=== PATIENT | male | born 1960 | race Caucasian/White ===

== ENCOUNTER 2018-05-30 19:33 | Emergency (ER) | payer OTHER ==
[~2018-05-30] VITALS: Ht 172.7 cm; Wt 89.5 kg
[~2018-05-30 19:33] MED LIST: PRLSR20 PO
[2018-05-30 19:43] VITALS: TEMP 36.7; Ht 172.7 cm; Wt 89.5 kg
[2018-05-30] MEDS ORDERED: LIDOCAINE 1% BUFFERED INJ 5 ML VIAL INFIL ONE (20:00)
[2018-05-30] MEDS ORDERED: CLR10 PO (20:14)
[2018-05-30] MEDS ORDERED: OMEP20TA PO (20:14)
--- NOTE | 2018-05-30 20:23 | EMERGENCY ROOM VISIT NOTE ---
History First contact with patient: 19:46 Chief Complaint: LACERATION/CUT (SUT/DERMABOND) Stated Complaint: RIGHT HAND INJURY Nursing Triage Summary: Pt reports he was hammering a stake with a sledge hammer, missed and his hand went on the stake. Laceration to crease of right hand, near thumb. Tetanus is not UTD History of Present Illness The patient is a 58 year old male who presents to the Emergency Room with complaints of a laceration to his right hand. The patient states that he was hammering a stake with a sledgehammer, missed and his hand went on for steak. He reports a laceration to the space between the thumb and index finger. He rates his discomfort a 2/10. He states that the blood soaked through a bandage. He is unsure when his last tetanus was, but believes it was when he was last here for a scalp laceration. He denies any numbness or weakness. Review of Systems A complete 6 point review of systems was reviewed with the patient with pertinent positives and negatives as per history of present illness. All else were negative. Past Medical/Surgical History Medical Problems: (1) GERD (gastroesophageal reflux disease) (2) Seasonal allergies Social History Housing Status: lives with family Current/Historical Medications Scheduled Omeprazole (Omeprazole), 20 MG PO DAILY Scheduled PRN Loratadine (Claritin), 10 MG PO DAILY PRN for Seasonal Allergies Physical Exam Vital Signs Date Time Temp Pulse Resp B/P (MAP) Pulse Ox O2 Delivery O2 Flow Rate FiO2 05/30/18 20:44 77 18 122/77 97 05/30/18 19:43 36.7 79 18 150/86 93 Room Air Physical Exam VITALS: Vitals are noted on the nurse's note and reviewed by myself. Vital signs stable. GENERAL: This is a 58-year-old male, in no acute distress, nondiaphoretic, well- developed well-nourished. SKIN: There is a 1 cm laceration to the right hand, located in the webspace between the thumb and index finger. There is no active bleeding. The laceration does not gape significantly. Capillary refill within 2 seconds. MUSCULOSKELETAL: Full range of motion of all fingers. NEURO: Patient was alert and oriented to person place and time. Distal sensation intact. Medical Decision & Procedures Procedure Verbal consent was obtained to perform the procedure. Using sterile technique the wound was cleaned with Betadine. The area was sterilely draped. 1 ml of 1 % buffered lidocaine was used to anesthetize the laceration. Once the patient was anesthetized, the wound was copiously irrigated under pressure with sterile saline. The wound was explored and there were no deep structures injured such as tendons, bone, or significant blood vessels. The laceration was repaired using 3 simple interrupted 5-0 nylon sutures with the wound edges being well approximated. The patient tolerated the procedure well. Hemostasis was achieved. The area was cleaned with sterile saline and dressed with bacitracin ointment and bandage. Medical Decision The patient was evaluated as above. His laceration was repaired as noted in the procedure section. Patient did have a tetanus in 2010 and is up-to-date. Suture care sections were discussed with the patient. He verbalized understanding of my assessment and treatment plan and was discharged home in good condition. Medication Reconcilliation Current Medication List: was personally reviewed by sc Blood Pressure Screening Patient's blood pressure: Normal blood pressure Impression Primary Impression: Laceration of hand Departure Information Dispostion Home / Self-Care Condition GOOD Referrals Han Flaherty M.D. (PCP) Patient Instructions My [facility] Additional Instructions You have received 3 sutures on your hand. These sutures are NOT dissolvable and WILL need to be removed by a health care provider in 8-10 days. You can return to the Emergency Department or contact your Primary Care Provider to have the sutures removed. Proper wound care is essential for adequate wound healing and infection prevention. You can shower and clean the wound with soap and water. Do not scour over the wound, pat dry with a towel. Do not submerse the wound (i.e. bathe or dish wash) until the sutures have been removed. You can use an antibiotic ointment with a dressing over the wound for the next 3-4 days. After this time you may leave the wound dry and open to the air. If crust develops over the wound you can use a Q-tip to apply a 1:1 peroxide:water solution to clean the wound. Look for signs of infection of the wound including: increased pain, swelling, foul discharge, streaking, or increased temperature. If any of these are noticed you should return to the Emergency Department for further assessment and treatment. As with any laceration you may have received nerve damage to the surrounding tissues. This damage may or may not be permanent. You should keep the area covered with sunscreen for the first 6 months to 1 year when at risk for exposure to help minimize scarring. You can also use scar reducing creams or Vitamin E oil to help minimize scarring. For pain control, you can use the following [id number] medicines (if >12 yo): - Regular strength (325mg/tab) Tylenol (acetaminophen) 2 tabs every 4-6 hours as needed. Do not exceed 12 tablets in a 24 hour period. Avoid taking more than 4 grams (4000 mg) of Tylenol per day. This includes any other sources of acetaminophen you may take on a regular basis. - Regular strength (200 mg/tab) Advil (ibuprofen) 1-2 tabs every 4-6 hours as needed. Do not exceed a dose of 3200 mg per day. Return to the emergency department if your symptoms worsen despite treatment course outlined above. Problem Qualifiers Primary Impression: Laceration of hand Encounter type: initial encounter Foreign body presence: without foreign body Laterality: right Qualified Codes: S61.411A - Laceration without foreign body of right hand, initial encounter
[2018-05-30 20:44] VITALS: BP 122/77; PULSE 77; O2SAT 97
== END 2018-05-30 20:46 | disposition home or self-care (01) ==
LOC: C.EDB 19:34 → C.EDD 20:46
DX: S61.411A Laceration without foreign body of right hand, initial encounter (principal); W26.8XXA Contact with other sharp object(s), not elsewhere classified, initial encounter; Z79.899 Other long term (current) drug therapy